=== PATIENT | female | born 1935 | race Caucasian/White ===

== ENCOUNTER 2016-07-29 14:56 | Inpatient (IN) | payer MEDICARE, BC ==
[~2016-07-29] VITALS: Ht 160 cm; Wt 109.7 kg
--- NOTE | ~2016-07-29 | ECH ---
Transthoracic Echocardiography Report (TTE) Demographics Patient Name MICHAEL NEELY Date of Study 08/02/2016 Patient Number [id number] Visit Number [id number] Date of 1935 Room Number 519 Accession Number [id number] Gender Female Age 81 year(s) Referring Zeb Arboleda Hamper Maker Machine Enedelia Swartz MD RD Physician Interpreting Jayy Mederos MD Asian Studies Professor Physician Supervising Ordering Physician Zeb Arboleda MD/WILMA SIMPSON Nurse Stress Redipper Conclusions Summary Technically adequate exam. The estimated left ventricular ejection fraction is 60-65%. The right atrium is mildly dilated. Trivial tricuspid regurgitation by color Doppler. There is mild pulmonary hypertension. The pulmonary pressure (RVSP) is 35 mmHg. Procedure Type of Study TTE procedure:Echo Complete SF. Procedure Date Date: 08/02/2016 Start: 02:07 PM Technical Quality: Adequate visualization Indications:Cardiomegaly, Diabetes and Hypertension. Appropriate Use Criteria: 9 Height: 63 inches Weight: 233 pounds BSA: 2.06 m Rhythm: NSR HR: 78 bpm BP: 145/57 mmHg M-Mode/2D Measurements LV Diastolic Dimension: 5.06 cm LV Systolic Dimension: 3.49 cm LV Septum Diastolic: 0.73 cm LV PW Diastolic: 0.93 cm AO Root Dimension: 2.74 cm Cardiac Output: 5.04 l/min LA Dimension: 4.59 cm Cardiac Index: 2.45 l/min*m RV Diastolic Dimension: 3.87 cm LA volume index: 31 ml/m LVOT: 1.92 cm LVOT VTI: 22.35 cm RV Base: 2.3 cm LV Stroke volume: 64.68 ml RV Mid: 2 cm LV Stroke volume index: 31.4 ml/m TAPSE: 2.3 cm TDI-S': 13 cm/s Doppler Measurements AV Peak Velocity: 1.7 m/s AV Peak Gradient: 11.56 mmHg AV Mean Gradient: 6.98 mmHg LVOT Peak Velocity: 1.02 m/s AV Area (Continuity):1.95 cm PV Peak Gradient: 5.57 mmHg TR Velocity:2.82 m/s Estimated PASP: 34.88 mmHg TR Gradient:31.88 mmHg A' Septal Velocity: 0.07 m/s Estimated RAP:3 mmHg A' Lateral Velocity: 0.12 m/s Estimated RVSP: 35 mmHg E' Septal Velocity: 0.13 m/s E' Lateral Velocity: 0.15 m/s RA Area: 19.3 cm Findings Left Ventricle Normal left ventricle size and function. Diastolic assessment reveals normal relaxation. Right Ventricle Normal right ventricle structure and function. Left Atrium Normal left atrial size. Right Atrium The right atrium is mildly dilated. Mitral Valve Normal mitral valve structure and function. Trivial mitral regurgitation by color Doppler. Aortic Valve The aortic valve is mildly sclerotic. The aortic valve was not well imaged. Tricuspid Valve Normal tricuspid valve structure and function. Trivial tricuspid regurgitation by color Doppler. There is mild pulmonary hypertension. The pulmonary pressure (RVSP) is 35 mmHg. Pulmonic Valve The pulmonic valve is not well visualized. Pericardial Effusion No evidence of pericardial effusion. Miscellaneous Visualized portions of the aortic root and ascending aorta appear normal in size. Pleural Effusion No evidence of pleural effusion. Signature
--- NOTE | 2016-07-30 19:21 | CO ---
ADMIT: 07/29/2016 RM/LOC: [address] [place] [address] MR#: [id number] [address] [place] [id number] [place]HAEL [place] [address] Consultation SEX: F AGE: 81 : 1935 DATE OF CONSULTATION: 07/29/2016 ATTENDING PHYSICIAN: Crystal Carrington CONSULTING PHYSICIAN: Rufino Ford MD REASON FOR CONSULTATION: Partial small bowel obstruction. HISTORY OF PRESENT ILLNESS: This patient is an 81-year-old female, came in because of increasing abdominal pain, and actually vomited a few times. CT scan shows a partial small bowel obstruction and probably a little midline hernia from her previous hysterectomy in the lower midline incision. This was done, I believe, 7 or 8 years ago for a uterine cancer that is otherwise been okay. Never had anything quite like this before. She has been feeling more bloated and short of breath because of the bloating. Currently, she is not complaining a lot of abdominal pain. She has had a few bowel movements recently, but they have not been of much substance. PAST MEDICAL HISTORY: Significant for the above as well as history of cholecystectomy. She has had a right breast cancer and surgery from that standpoint. She has a history of hypothyroidism and hypertension. She has some GERD and swallowing problems. CURRENT MEDICATIONS: Please see list that she brings with. ALLERGIES: SHE HAS ALLERGIES TO CEPHALOSPORIN, PENICILLIN, PEANUT, AND CINNAMON. SOCIAL HISTORY: Currently staying at [facility]. Denies significant tobacco, alcohol, or illicit drugs. PHYSICAL EXAMINATION: GENERAL: She is alert and oriented. She is in no ADMIT: 07/29/2016 RM/LOC: [address] [place] [address] MR#: [id number] [address] [place] [id number] [place] [address] Consultation SEX: F AGE: 81 : 1935 significant distress. HEENT: Her sclerae are nonicteric. Extraocular muscles are intact. CHEST: Clear anteriorly. She has had a previous right mastectomy. HEART: Appears regular rate and rhythm. ABDOMEN: Distended. She does have a few bowel sounds. There is no peritoneal signs or mass. I am unable to detect a significant hernia and pushing even hard and deep, she does not appear to have any significant pain. ASSESSMENT: At this point, would continue with NG tube for intermittent suctions and then do a bowel rest and we will see how she does. I will follow her along. May end up needing surgical intervention, but no acute reason for surgical intervention at this time. Rufino Ford MD/ shanda JOB #: [id number] CC: Crystal Carrington, Attending Physician Crystal Carrington, Family Physician
--- NOTE | 2016-08-04 15:52 | ER ---
ADMIT: 07/29/2016 RM/LOC: 519 [facility] MR#: [id number] [address] [id number] MICHAEL NEELY [place] [place] [address] Emergency Room Report SEX: F AGE: 81 : 1935 DATE: 07/29/2016 ADDENDUM: An 81-year-old female, comes in with nausea, vomiting, belly distention, and abdominal pain. She states this has been going on since last night. She has vomited three times prior to arrival. On examination, she does have a distended abdomen, which is mildly diffuse tender with some high- pitched bowel sounds. Her CT shows small bowel obstruction with possible incarcerated loop inferior to the level of the umbilicus and some renal cyst. Her CBC is unremarkable. Chemistries showed a BUN of 29, creatinine of 1.6, and glucose 145. She received a liter of normal saline while in the Emergency Department, 4 of [facility], and had an NG placed. I spoke to Dr. Carrington, the patient's primary care physician, who will be admitting the patient for management of her small bowel obstruction. Mack Sandhu MD/ shanda JOB #: [id number] CC: Crystal Carrington MD, Attending Physician Crystal Carrington MD, Family Physician
--- NOTE | 2016-08-11 16:32 | DS ---
ADMIT: 07/29/2016 RM/LOC: 519 [facility] MR#: [id number] [address] [address] [place] [address] Discharge Summary SEX: F AGE: 81 : 1935 ADMISSION DATE: 07/29/2016 DISCHARGE DATE: 08/10/2016 FINAL DIAGNOSES: 1. Small bowel obstruction status post surgery. 2. Aspiration pneumonia. 3. Diabetes. 4. Hypertension. 5. Weakness. REASON FOR ADMISSION: This is an 81-year-old female, who was originally admitted with abdominal pain, found to have a small bowel obstruction. She had an NG in place and she did not really improve very much. She continued to have problems. The NG had a lot out initially so she was continued with IV fluid and with an NG in place for a few days. She had some stool at times and at other times not. Really did not have much progress by about five days so on the 6th day she was set up and taken to the OR for surgery. The scan at that time actually showed a worsening obstruction. She had a PICC line placed on the 16. Ultimately had TPN for about six days. She had some mild elevated temperatures and some increased oxygen requirements. An x-ray revealed some inflammatory changes so it was felt she had some aspiration pneumonia from all her nausea and vomiting initially. So after she had her surgery she was monitored pretty closely and ultimately put on meropenem on the for the aspiration pneumonia. She had some allergies and other antibiotics, that is why we chose this. That was postop day two. Her blood sugars went up when she had the TPN. She was given sliding scale insulin. She had PT and OT work with her and she gradually got stronger but still was pretty weak. It was ultimately then decided she was going to need at least a full course of IV antibiotics so she was set up to go to skilled care, the so she was ready to go on the . She will go up to [facility] nursing for IV antibiotics and short-term rehabilitation. DISCHARGE MEDICATIONS: 1. Cozaar 50 mg daily. 2. MiraLAX 17 g in 8 ounces of water daily. 3. Norvasc 5 mg daily. 4. Pepcid 20 mg b.i.d. 5. DuoNeb q.i.d. for 7 days and then q.4 hours p.r.n. 6. Lumigan 0.01% 1 drop OU every night. 7. Lovenox 40 mg subcu daily for 7 days. 8. OCuSOFT lid scrub which can be used daily. ADMIT: 07/29/2016 RM/LOC: 519 [facility] MR#: [id number] [address] [address] [place] [address] Discharge Summary SEX: F AGE: 81 : 1935 9. Levothyroxine 150 mcg daily. 10.Spironolactone 50 mg daily. 11.Tylenol 500 mg two tabs q.6h p.r.n. 12.Nystatin powder 100,000 units b.i.d. p.r.n. 13.Ventolin inhaler two puffs 3-4 times a day. 14.Ertapenem 1 g IV q.24 hours x6 more days. DISCHARGE INSTRUCTIONS: Diet will be regular. Oxygen to keep sats greater than 90%. She is currently on room air. She has an abdominal wound which will need some wound just dressing routinely. She will have PT and OT for strengthening and follow up with Dr. Carrington in 1 to 2 weeks and to follow up with surgery per their schedule. Calderon Peterson MD/ fausto JOB #: [id number] CC: Crystal Carrington MD, Attending Physician Crystal Carrington MD, Family Physician
[2016-08-11] MEDS ORDERED: NORVASC5 MG PO (19:12)
[2016-08-11] MEDS ORDERED: PEPCID DPS20 MG PO (19:12)
[2016-08-11] MEDS ORDERED: COZAAR DPS50 MG PO (19:12)
[2016-08-11] MEDS ORDERED: MIRALAX PACKET17 GM PO (19:12)
[2016-08-11] MEDS ORDERED: DUONEB DPS3 ML IH (19:13)
[2016-08-11] MEDS ORDERED: LUMIGAN 0.01%2.5 ML OU (19:13)
[2016-08-11] MEDS ORDERED: LOVENOX DP40 MG/0.4 SQ (19:13)
[2016-08-11] MEDS ORDERED: OCUSOFT LID SC1 EAC1 TP (19:14)
[2016-08-11] MEDS ORDERED: SYNTHROID DPS0.15 MG PO (19:14)
[2016-08-11] MEDS ORDERED: ALDACTONE DPS25 MG PO (19:15)
[2016-08-11] MEDS ORDERED: TYLENOL EXTRA500 M1 PO (19:15)
[2016-08-11] MEDS ORDERED: DUONEB DPS3 ML PO (19:15)
[2016-08-11] MEDS ORDERED: MYCOSTATIN PWD15 GM TP (19:16)
[2016-08-11] MEDS ORDERED: PROVENTIL HFA6.7 GM IH (19:16)
[2016-08-11] MEDS ORDERED: INVANZ1 GM IV (19:17)
--- NOTE | 2016-08-14 07:43 | HP ---
ADMIT: 07/29/2016 RM/LOC: 519 [facility] MR#: [id number] [id number] [facility] [address] [place], [place] [address] [place] [address] History and Physical SEX: F AGE: 81 : 1935 DATE OF SERVICE: CHIEF COMPLAINT: Abdominal distention and abdominal pain. HISTORY OF PRESENT ILLNESS: Ms. Neely is a very pleasant 81-year-old female. She has past medical history significant for diabetes mellitus, GERD, history of breast cancer, history of endometrial cancer, hypertension, who presented to the ER with complaints of increasing abdominal pain. She reports that she started having some abdominal pain on a trip back from [place] on Sunday. Notes that just seemed distended, she was not able to eat very much. Notes that she normally has a bowel movement every other day and had one since Sunday, which was four days at the time of admission. She reports that she had not really had any nausea, had not any emesis. Otherwise, denies any fevers or chills, but does feel like she was quite short of breath because her abdomen was so distended. On evaluation in the ER, they did find that she had a partial small bowel obstruction and felt she warranted admission for further evaluation and treatment. PAST MEDICAL HISTORY: Significant for: 1. Osteoporosis. 2. Hyperlipidemia. 3. History of intermittent atrial cancer. 4. Status post hysterectomy. 5. GERD. 6. History of breast cancer. 7. Mild cognitive impairment. 8. Status post cholecystectomy. 9. Hypertension. 10.Diabetes mellitus type 2. 11.Hypothyroidism. 12.History of Graves' disease. 13.Status post right mastectomy. 14.Psoriasis. 15.History of urinary incontinence. ALLERGIES: CEPHALOSPORINS, CINNAMON, PEANUTS, PENICILLIN, AND VESICARE. MEDICATIONS: Currently, at home were Tylenol, DuoNebs every 4 hours as needed, Maalox as needed, Norvasc 5 mg p.o. daily, Lumigan eye drops one drop nightly into both eyes, calcium carbonate p.o. b.i.d., Debrox p.r.n., Temovate p.r.n., Lotrisone p.r.n., levothyroxine 150 mcg p.o. daily, losartan 50 mg p.o. daily, Zantac 150 p.o. at bedtime, VESIcare 5 mg p.o. daily, Aldactone 25 mg p.o. daily. FAMILY HISTORY: Her mother had cancer, father had no known problems. SOCIAL HISTORY: No significant alcohol. She does reside in assisted living. Her resides there also. ADMIT: 07/29/2016 RM/LOC: 519 [facility] MR#: [id number] [address] [address] [place] [address] History and Physical SEX: F AGE: 81 : 1935 REVIEW OF SYSTEMS: Obtained, was otherwise essentially negative. PHYSICAL EXAMINATION: GENERAL: She is alert and oriented. She is no apparent distress. HEENT: Pupils are equal, round, and reactive. She has an NG and oropharynx has dry mucous membranes. NECK: Supple. HEART: Normal rate with a regular rhythm. LUNGS: Have diminished breath sounds bilaterally. ABDOMEN: Quite distended. Bowel sounds are hypoactive. EXTREMITIES: Her right lower extremity has 2 to 3+ lower extremity edema, and her left lower extremity has 1 to 2+ lower extremity edema. ASSESSMENT AND PLAN: 1. Partial small-bowel obstruction. Surgery has already seen. She has not NG, and we will continue to monitor. 2. Diabetes mellitus. She is not currently on any medications. 3. Dehydration. We will give her some IV fluids. 4. Hypertension. Hold her medications right now as she is n.p.o. We will give her IV if needed. 5. History of endometrial cancer. 6. History of breast cancer. 7. Hypothyroidism, may need to go ahead and put her on IV replacement if she is n.p.o. for more than three days. Crystal Carrington MD/ shanda JOB #: [id number] CC: Crystal Carrington, Attending Physician Crystal Carrington, Family Physician
--- NOTE | 2016-08-25 11:47 | OR ---
ADMIT: 07/29/2016 RM/LOC: 519 [facility] MR#: [id number] [address] [address] [place] [address] Operative/Delivery Room Report SEX: F AGE: 81 : 1935 Corrected: 08/07/2016 0629 [facility] SURGERY DATE: 08/04/2016 SURGEON: Rufino Ford MD PREOPERATIVE DIAGNOSIS: Small-bowel obstruction. POSTOPERATIVE DIAGNOSIS: Small-bowel obstruction secondary to an adhesed piece of bowel up to the anterior abdominal wall. PROCEDURE: Exploratory laparotomy with lysis of adhesions. Segmental resection of small bowel. PUBLIC HEALTH ASSISTANT: Jasen Bailey MD, who was necessary for adequate exposure, retraction, and completion of this case. ANESTHESIA: General endotracheal tube anesthesia. ESTIMATED BLOOD LOSS: 50 mL or less. INDICATION FOR PROCEDURE: Please see H and P. DESCRIPTION OF PROCEDURE: After the risks, benefits, possible complications, and the alternatives had been explained, and informed consent had been obtained, the patient was taken back to the operating room, underwent general endotracheal tube anesthesia and the surgical field was prepped and draped in a sterile manner. A midline incision was made from the umbilicus down, ended up getting into the abdominal cavity up above the abdomen because there was bowel just really stuck up to the incision right below the umbilicus. We kind of knew this from the CAT scan. Started just slowly working things down, and in the process this part of the bowel was what was basically causing the obstruction. There was a big hernia there with it being adhered that is where it was ended up being twisted and kinked causing these intermittent obstructions. In the process of taking it down, it was so thinned out and so adhered, I ended up getting an enterotomy, ran the bowel from beginning to end and ultimately found no other significant adhesions or signs of obstruction. It was significantly dilated right up to this piece of bowel and then decompressed further down. I did not feel like I said any other spots that needed to be taken care of, so ended up dividing both on each sides of the enterotomy of the small bowel with a DAPHNIE stapler. Clamped, divided, and ligated the mesentery, removed this piece of small bowel. I then created a [id number] stapled anastomosis before we completed the anastomosis. I Did use the sucker to remove all the enteric contents of all the dilated bowel proximally. like I said, created a [id number] stapled anastomosis, close ADMIT: 07/29/2016 RM/LOC: 519 [facility] MR#: [id number] [address] [address] [place] [address] Operative/Delivery Room Report SEX: F AGE: 81 : 1935 that off the DAPHNIE stapler, reinforced the crotch of the anastomosis and the staple line with silk sutures. Closed the mesenteric defect with silk suture. I then returned everything to the abdominal cavity. Irrigated out everything and then closed the fascia with a running loop PDS superiorly, inferiorly, and tying in the middle. Irrigated out subcutaneous tissues and then the skin was closed with nhan. She tolerated it well. She was being extubated when I left the room. She was in stable and satisfactory condition with all needle and lap counts correct x2. Rufino Ford MD/ shanda JOB #: [id number] CC: Crystal Carrington, Attending Physician Crystal Carrington, Family Physician Crystal Carrington MD Corrected: 08/07/2016 0629 [facility]
== END 2016-08-10 10:31 | DRG 329 ==
LOC: ER 14:56 → 5MS 17:50
PROVIDERS: ADMIT Internal Medicine
PROC: 0DB80ZZ Excision of Small Intestine, Open Approach (ICD-10-PCS; principal; 2016-08-04)
PROC: 0DN80ZZ Release Small Intestine, Open Approach (ICD-10-PCS; principal; 2016-08-04)
PROC: 02HV33Z Insertion of Infusion Device into Superior Vena Cava, Percutaneous Approach (ICD-10-PCS; 2016-08-04)
PROC: 3E0436Z Introduction of Nutritional Substance into Central Vein, Percutaneous Approach (ICD-10-PCS; 2016-08-05)
DX: K46.0 Unspecified abdominal hernia with obstruction, without gangrene (principal); J69.0 Pneumonitis due to inhalation of food and vomit; E46 Unspecified protein-calorie malnutrition; R13.10 Dysphagia, unspecified; Z68.41 Body mass index [BMI] 40.0-44.9, adult; E86.0 Dehydration; E11.9 Type 2 diabetes mellitus without complications; I51.7 Cardiomegaly; K21.9 Gastro-esophageal reflux disease without esophagitis; I10 Essential (primary) hypertension; R09.02 Hypoxemia; D64.9 Anemia, unspecified; E66.9 Obesity, unspecified; F03.90 Unspecified dementia, unspecified severity, without behavioral disturbance, psychotic disturbance, mood disturbance, and anxiety; R32 Unspecified urinary incontinence; M81.0 Age-related osteoporosis without current pathological fracture; E78.5 Hyperlipidemia, unspecified; G31.84 Mild cognitive impairment of uncertain or unknown etiology; E03.9 Hypothyroidism, unspecified; Z90.11 Acquired absence of right breast and nipple; Z85.3 Personal history of malignant neoplasm of breast; Z85.42 Personal history of malignant neoplasm of other parts of uterus